=== PATIENT | female | born 1960 | race Caucasian/White ===

== ENCOUNTER → 2017-06-20 | Outpatient (CLI) | payer MEDICARE, OTHER | END | disposition home or self-care (01) | LOC: KCIC MRI 12:33 | DX: M48.02 Spinal stenosis, cervical region (principal); M50.33 Other cervical disc degeneration, cervicothoracic region; M47.892 Other spondylosis, cervical region; M25.78 Osteophyte, vertebrae; M43.12 Spondylolisthesis, cervical region; R60.0 Localized edema | CPT/HCPCS: 72141 ==

== ENCOUNTER 2017-07-09 14:21 | Emergency (ER) | payer MEDICARE, OTHER ==
[2017-07-09] MEDS: fentaNYL PF VIAL 100 MCG/2 ML VIAL IV (14:56)
[2017-07-09] MEDS: PROCHLORPERAZINE 10 MG/2 ML VIAL. IV (14:56)
[2017-07-09] MEDS: METOCLOPRAMIDE HCL 10 MG/2 ML VIAL. IV (14:57)
[2017-07-09 15:49] LABS: ADD MAN DIFF? NO
[2017-07-09 15:50] LABS: BASO # 0.1 x10^3/uL (0.0-0.2); BASO % 1 % (0-3); EOS # 0.1 x10^3/uL (0.0-0.7); EOS % 2 % (0-3); HEMATOCRIT 40.1 % (36.0-47.0); HEMOGLOBIN 13.3 g/dL (12.0-15.5); LYMPH # 2.6 x10^3/uL (1.0-4.8); LYMPH % 35 % (24-48); MEAN CORPUSCULAR HEMOGLOBIN 26 pg (25-35); MEAN CORPUSCULAR HGB CONC 33 g/dL (31-37); MEAN CORPUSCULAR VOLUME 79 fL (79-100); MONO # 0.4 x10^3/uL (0.0-1.1); MONO % 6 % (0-9); NEUT # 4.2 x10^3uL (1.8-7.7); NEUT % 57 % (31-73); PLATELET COUNT 221 x10^3/uL (140-400); RED BLOOD COUNT 5.06 x10^6/uL (3.50-5.40); RED CELL DISTRIBUTION WIDTH 14.7 % (11.5-14.5); WHITE BLOOD COUNT 7.4 x10^3/uL (4.0-11.0)
[2017-07-09 16:07] LABS: ANION GAP 12 (6-14); BLOOD UREA NITROGEN 16 mg/dL (7-20); BUN/CREATININE RATIO 20 (6-20); CARBON DIOXIDE 27 mmol/L (21-32); CHLORIDE 103 mmol/L (98-107); CREATININE 0.8 mg/dL (0.6-1.0); GFR 73.4; GLUCOSE 100 mg/dL (70-99); POTASSIUM 3.8 mmol/L (3.5-5.1); SODIUM 142 mmol/L (136-145)
[2017-07-09 16:10] LABS: NEG OBC SER NEG; POS OBC SER POS; PREG TEST PT QUAL NEGATIVE (NEG)
[2017-07-09 16:13] LABS: ALBUMIN 3.5 g/dL (3.4-5.0); ALK PHOS 139 U/L (46-116); ALT (SGPT) 22 U/L (14-59); AST (SGOT) 14 U/L (15-37); TOTAL BILIRUBIN 0.5 mg/dL (0.2-1.0)
[2017-07-09 16:15] LABS: NT-PRO BNP 260 pg/mL (0-124); TROPONINI < 0.017 ng/mL (0.000-0.055)
== END 2017-07-09 18:15 | disposition home or self-care (01) ==
LOC: ER 14:21
DX: R51 Headache (principal); R07.89 Other chest pain; I10 Essential (primary) hypertension; G43.909 Migraine, unspecified, not intractable, without status migrainosus; I25.10 Atherosclerotic heart disease of native coronary artery without angina pectoris; Z95.5 Presence of coronary angioplasty implant and graft; F41.9 Anxiety disorder, unspecified; Z88.2 Allergy status to sulfonamides
CPT/HCPCS: 36415; 70450; 71045; 80053; 83880; 84484; 84703; 85025; 93005; 96374; 96375; 99285-25; J0780; J2765; J3010